=== PATIENT | female | born 1985 | race Caucasian/White ===

== ENCOUNTER 2016-10-17 22:09 | Emergency (ER) | payer OTHER ==
[~2016-10-17] VITALS: Ht 157.5 cm; Wt 48.5 kg
[2016-10-18 00:38] VITALS: BP 103/61
[2016-10-18] MEDS ORDERED: BACITRACIN TOP OINT 1 UD PKG TOP ONE ×2 (01:20→01:30)
== END 2016-10-18 01:47 | disposition home or self-care (01) ==
LOC: ER 22:12
DX: S61.212A Laceration without foreign body of right middle finger without damage to nail, initial encounter (principal); W45.8XXA Other foreign body or object entering through skin, initial encounter; Y93.89 Activity, other specified; Y92.89 Other specified places as the place of occurrence of the external cause; Y99.8 Other external cause status
CPT/HCPCS: 12001

== ENCOUNTER 2019-10-29 20:56 | Emergency (ER) | payer OTHER ==
[~2019-10-29] VITALS: Ht 157.5 cm; Wt 45.4 kg
[2019-10-29 21:00] VITALS: BP 120/75
== END 2019-10-29 23:44 | disposition left against medical advice (07) ==
LOC: ER 20:56
DX: R11.2 Nausea with vomiting, unspecified (principal); Z53.21 Procedure and treatment not carried out due to patient leaving prior to being seen by health care provider